=== PATIENT | female | born 1990 | race Caucasian/White ===

== ENCOUNTER → 2018-02-17 | Outpatient (CLI) | payer SELFPAY ==
[~2018-02-17] MED LIST: KENALOG 0.5% CR15 GM PO
== END | disposition home or self-care (01) ==
LOC: MRI 09:45
DX: H57.02 Anisocoria (principal); R51 Headache

== ENCOUNTER 2019-07-14 08:02 | Emergency (ER) | payer MEDICAID ==
[~2019-07-14] VITALS: Ht 160 cm; Wt 117.9 kg
[2019-07-14] MEDS ORDERED: ZOLOFT100 MG PO (08:16)
[2019-07-14] MEDS ORDERED: PROTONIX40 MG PO (08:17)
[2019-07-14] MEDS ORDERED: AMOXICILLIN500 M2 PO (10:05)
[2019-07-14] MEDS ORDERED: DIFLUCAN150 MG PO (10:05)
== END 2019-07-14 10:10 | disposition home or self-care (01) ==
LOC: ED 08:02
DX: J02.0 Streptococcal pharyngitis (principal); R06.02 Shortness of breath; F17.200 Nicotine dependence, unspecified, uncomplicated; Z88.6 Allergy status to analgesic agent; Z88.8 Allergy status to other drugs, medicaments and biological substances; Z79.899 Other long term (current) drug therapy

== ENCOUNTER 2019-08-03 08:35 | Emergency (ER) | payer OTHER, MEDICAID ==
[~2019-08-03] VITALS: Ht 160 cm; Wt 117.9 kg
[~2019-08-03 08:35] MED LIST changes: +AMOXICILLIN500 M2 PO; +DIFLUCAN150 MG PO; +PROTONIX40 MG PO; +ZOLOFT100 MG PO
[2019-08-03] MEDS ORDERED: MEDROL DOSEPAK4 MG PO (11:58)
[2019-08-03] MEDS ORDERED: METHOCARBAMOL500 M1 PO (11:58)
== END 2019-08-03 12:19 | disposition home or self-care (01) ==
LOC: ED 08:35
DX: S86.912A Strain of unspecified muscle(s) and tendon(s) at lower leg level, left leg, initial encounter (principal); Z88.8 Allergy status to other drugs, medicaments and biological substances; Z79.2 Long term (current) use of antibiotics; Z79.899 Other long term (current) drug therapy; V49.9XXA Car occupant (driver) (passenger) injured in unspecified traffic accident, initial encounter; Y93.89 Activity, other specified; Y92.89 Other specified places as the place of occurrence of the external cause; Y99.8 Other external cause status

== ENCOUNTER 2020-08-11 08:08 | Emergency (ER) | payer OTHER ==
[~2020-08-11] VITALS: Wt 108.9 kg
[~2020-08-11 08:08] MED LIST changes: +MEDROL DOSEPAK4 MG PO; +METHOCARBAMOL500 M1 PO
== END 2020-08-11 10:24 | disposition home or self-care (01) ==
LOC: ED 08:08
DX: H20.9 Unspecified iridocyclitis (principal); F17.200 Nicotine dependence, unspecified, uncomplicated; Z88.8 Allergy status to other drugs, medicaments and biological substances; Z79.899 Other long term (current) drug therapy; Z98.890 Other specified postprocedural states

== ENCOUNTER 2020-08-29 11:10 | Observation (INO) | payer OTHER ==
[~2020-08-29] VITALS: Ht 157.5 cm; Wt 115.4 kg
[2020-08-29 11:17] VITALS: BP 122/85
[2020-08-29 11:51] LABS: BILIRUBIN Negative (Negative); BLOOD Trace-Lysed (Negative); CLARITY Clear (Clear); COLOR Yellow (Yellow); GLUCOSE Negative (Negative); KETONE Negative (Negative); LEUKO ESTERASE 2+ (Negative); NITRITE Negative (Negative); SPECIFIC GRAVITY 1.015 (1.001-1.030); UROBILINOGEN 0.2 E.U./dl (0.0-1.0)
[2020-08-29 12:02] LABS: BACTERIA TRACE; EPITHELIAL CELLS 16-20
[2020-08-29 12:03] LABS: MUCOUS 1+; WBC 21-30 wbc/hpf (0-5)
[2020-08-29 12:22] LABS: BASO % 0.4 % (0.0-1.0); EOS # 0.1 10*3/uL (0.0-0.4); EOS % 1.3 % (1.0-4.0); HEMATOCRIT 43.1 % (37.0-47.0); LYMPH # 1.3 10*3/uL (1.3-4.4); LYMPH % 11.6 % (27.0-41.0); MEAN CELL VOLUME 91.7 fl (81.0-99.0); MEAN CORPUSCULAR HGB 30.6 pg (27.0-31.0); MEAN CORPUSCULAR HGB CONC 33.4 g/dl (33.0-37.0); MEAN PLATELET VOLUME 11.1 fl (9.6-12.3); MONO # 0.8 10*3/uL (0.1-1.0); MONO % 6.9 % (3.0-9.0); NEUT # 8.9 10*3/uL (2.3-7.9); NEUT % 79.5 % (47.0-73.0); PLATELET COUNT AUTOMATED 234 10*3/uL (130-400); WHITE BLOOD COUNT 11.2 10*3/uL (4.8-10.8)
[2020-08-29 12:36] LABS: ALBUMIN 3.7 gm/dl (3.1-4.5); ALKALINE PHOSPHATASE 189 U/L (45-117); BUN 9 mg/dl (7-24); CHLORIDE 110 mmol/L (98-107); CREATININE 0.76 mg/dL (0.55-1.02); SGOT/AST 69 IU/L (3-35); SGPT/ALT 113 U/L (12-78); SODIUM 140 mmol/L (136-145); TOTAL PROTEIN 7.3 gm/dL (6.4-8.2)
[2020-08-29 12:44] VITALS: BP 100/52
[2020-08-29 13:45] VITALS: BP 120/68
[2020-08-29 15:34] VITALS: BP 99/62
[2020-08-29 16:00] VITALS: BP 107/66
[2020-08-29 20:00] VITALS: BP 100/60
[2020-08-30] VITALS: BP 105/50
[2020-08-30 06:17] LABS: ALBUMIN 3.1 gm/dl (3.1-4.5); BASO % 0.4 % (0.0-1.0); BUN 10 mg/dl (7-24); CHLORIDE 110 mmol/L (98-107); EOS # 0.2 10*3/uL (0.0-0.4); EOS % 2.4 % (1.0-4.0); HEMATOCRIT 40.4 % (37.0-47.0); LYMPH # 1.7 10*3/uL (1.3-4.4); LYMPH % 19.5 % (27.0-41.0); MEAN CELL VOLUME 93.7 fl (81.0-99.0); MEAN CORPUSCULAR HGB 30.6 pg (27.0-31.0); MEAN CORPUSCULAR HGB CONC 32.7 g/dl (33.0-37.0); MEAN PLATELET VOLUME 11.2 fl (9.6-12.3); MONO # 0.9 10*3/uL (0.1-1.0); MONO % 10.4 % (3.0-9.0); NEUT # 5.7 10*3/uL (2.3-7.9); NEUT % 67.1 % (47.0-73.0); PLATELET COUNT AUTOMATED 194 10*3/uL (130-400); POTASSIUM 3.9 mmol/L (3.5-5.1); RED BLOOD COUNT 4.31 10*6/uL (4.10-5.10); RED CELL DISTRI WIDTH 13.2 % (0-14.5); SODIUM 138 mmol/L (136-145); WHITE BLOOD COUNT 8.5 10*3/uL (4.8-10.8)
[2020-08-30 06:24] LABS: ALKALINE PHOSPHATASE 146 U/L (45-117); CHOLESTEROL 125 mg/dL (<200); CREATININE 0.82 mg/dL (0.55-1.02); FREE T4 1.06 ng/dl (0.76-1.46); HDL CHOLESTEROL 48 mg/dl (40-60); LDL CHOLESTEROL 67 mg/dL (9-159); SGOT/AST 32 IU/L (3-35); SGPT/ALT 75 U/L (12-78); THYROID STIM HORMONE (HS) 0.872 uIU/ml (0.358-4.75); TOTAL PROTEIN 6.5 gm/dL (6.4-8.2); TRIGLYCERIDES 50 mg/dl (<150); VLDL CHOLESTEROL 10 mg/dL (6-40)
[2020-08-30 08:00] VITALS: BP 116/77
[2020-08-30 12:00] VITALS: BP 121/69
[2020-08-30] MEDS ORDERED: CIPRO500 MG PO (15:35)
[2020-08-30] MEDS ORDERED: ZOFRAN4 MG PO (15:35)
[2020-08-30] MEDS ORDERED: FLAGYL500 MG PO (15:35)
== END 2020-08-30 16:55 | disposition home or self-care (01) ==
LOC: ED 11:10 → EDHOLD 14:26 → 5E 15:36
PROVIDERS: Social Worker Clinical; Student in an Organized Health Care Education/Training Program; ADMIT Internal Medicine; ATTEND Internal Medicine
DX: K57.92 Diverticulitis of intestine, part unspecified, without perforation or abscess without bleeding (principal); R79.89 Other specified abnormal findings of blood chemistry; E87.8 Other disorders of electrolyte and fluid balance, not elsewhere classified; D72.829 Elevated white blood cell count, unspecified; R74.01 Elevation of levels of liver transaminase levels; R11.0 Nausea; K21.9 Gastro-esophageal reflux disease without esophagitis; F17.200 Nicotine dependence, unspecified, uncomplicated; F10.10 Alcohol abuse, uncomplicated; F12.90 Cannabis use, unspecified, uncomplicated; Z88.8 Allergy status to other drugs, medicaments and biological substances; Z91.02 Food additives allergy status

== ENCOUNTER 2020-12-08 13:07 | Emergency (ER) | payer OTHER ==
[~2020-12-08 13:07] MED LIST changes: +CIPRO500 MG PO; +FLAGYL500 MG PO; +ZOFRAN4 MG PO
[2020-12-08] MEDS ORDERED: CYCLOBENZAPRINE10 MG PO (14:22)
[2020-12-08] MEDS ORDERED: PREDNISONE50 MG PO (14:22)
== END 2020-12-08 14:36 | disposition home or self-care (01) ==
LOC: ED 13:07
DX: S39.012A Strain of muscle, fascia and tendon of lower back, initial encounter (principal); F17.200 Nicotine dependence, unspecified, uncomplicated; Z91.018 Allergy to other foods; Z88.6 Allergy status to analgesic agent; Z79.2 Long term (current) use of antibiotics; Z79.899 Other long term (current) drug therapy; Z98.51 Tubal ligation status; X50.1XXA Overexertion from prolonged static or awkward postures, initial encounter; Y93.89 Activity, other specified; Y92.89 Other specified places as the place of occurrence of the external cause; Y99.8 Other external cause status

== ENCOUNTER 2023-02-22 23:35 | Emergency (ER) | payer MEDICAID ==
[~2023-02-22] VITALS: Ht 157.4 cm; Wt 77.1 kg
[~2023-02-22 23:35] MED LIST changes: +CYCLOBENZAPRINE10 MG PO; +PREDNISONE50 MG PO
== END 2023-02-23 03:08 | disposition home or self-care (01) ==
LOC: ED 23:35
DX: S05.02XA Injury of conjunctiva and corneal abrasion without foreign body, left eye, initial encounter (principal); K21.9 Gastro-esophageal reflux disease without esophagitis; G43.909 Migraine, unspecified, not intractable, without status migrainosus; E87.8 Other disorders of electrolyte and fluid balance, not elsewhere classified; Z91.018 Allergy to other foods; Z88.6 Allergy status to analgesic agent; Z98.890 Other specified postprocedural states; Z98.51 Tubal ligation status; F17.200 Nicotine dependence, unspecified, uncomplicated; F12.90 Cannabis use, unspecified, uncomplicated; X58.XXXA Exposure to other specified factors, initial encounter; Y93.89 Activity, other specified; Y92.89 Other specified places as the place of occurrence of the external cause; Y99.8 Other external cause status